=== PATIENT | female | born 1985 | race Caucasian/White ===

== ENCOUNTER → 2016-11-08 00:07 | Observation (INO) ==
--- NOTE | 2016-11-08 00:05 | OB/GYN Progress Note ---
Date of Encounter: 11/08/16 Time of Encounter: 00:01 - Assessment and Plan (1) 38 weeks gestation of Current Visit: Yes Status: Acute (2) False labor Current Visit: Yes Status: Acute Pt monitored for almost 2 hours with no cervical change. Contractions > every 10 minutes. Pt states contraction strength has decreased since arrival. Discussed case with Dr. Yarbrough on admission. He stated if no change discharge to home. Discussed when to return to triage and when to call provider with patient and , both state understanding. Subjective - Subjective Interval history: 31-year-old patient Dr. Hoff complains of contractions since earlier this afternoon contractions are anywhere from 8-20 minutes apart. Patient is a history of 2 would be repeat . Reports good movement denies vaginal bleeding or leaking of fluid. Antepartum ROS: movement normal, contractions, no loss of fluid, no vaginal bleeding Objective - Vital Signs Vital Signs: Intake and Output 11/07/16 11/07/16 11/08/16 15:59 23:59 07:59 Other: Weight 102.2 kg - Exam FHR: auscultation normal FHR comments: Baseline 135 Auscultation: bilateral: normal Abdomen: Present: normal appearance, soft, gravid Uterus: Present: normal Cervical dilation: 2/80/-2
== END | disposition home or self-care (01) ==
LOC: 1NENULAB
PROVIDERS: ADMIT Advanced Practice Midwife; ATTEND Obstetrics & Gynecology

== ENCOUNTER 2016-11-16 05:49 | Inpatient (IN) ==
[2016-11-16] MEDS ORDERED: CeFAZolin Pre 2,000 MG/100 ML 2,000 MG/100 ML BAG IVPB ONE (05:58)
[2016-11-16] MEDS ORDERED: Metoclopramide 10 MG/2 ML VIAL IVP PRN ×3 (05:58→12:13)
[2016-11-16] MEDS ORDERED: Famotidine 20 MG/2 ML VIAL IVP PRN ×2 (05:58→06:25)
[2016-11-16] MEDS ORDERED: Ringers Solution, Lactated 1,000 ML IVC SCH ×2 (06:00→12:13)
--- NOTE | 2016-11-16 06:53 | Anesthesia Evaluation PreOp ---
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: Denies Any Significant HX, Other (depression) Other Medical History: Denies Any Significant HX Anesthesia History: No Prior Anesthetic Complications, Past Anesthesia (lap lane) : Yes (, 39 weeks) Alcohol Use: none Drug use: none Medications and Allergies Bupropion HCl [Wellbutrin Xl] 300 mg PO DAILY 11/07/16 [History] FLUoxetine HCl [PROzac] 20 mg PO DAILY 11/07/16 [History] Vit #108/Iron/FA [ One Tablet] 1 each PO DAILY 11/07/16 [ History] Trazodone HCl 100 mg PO DAILY 11/07/16 [History] Allergies No Known Allergies Allergy (Verified 11/16/16 06:05) - Meds/Allergy Pre-op Review Medications Reviewed: Yes Allergies Reviewed: Yes Beta Blockers on Current Med List: No Anesthesia Exam O2 Sat Height 1.57 m Weight 101 kg Vital Signs Temp Pulse Resp BP 97.8 F 77 16 100/61 11/16/16 06:19 11/16/16 06:19 11/16/16 06:19 11/16/16 06:19 Height: 62 Weight: 101 NPO (# of Hours): greater than 8 hours - HEENT Pupil (Motor): Pupils equal Mallampati: I Teeth: Edentulous Oral Opening: Greater than 3 - BORING INSPECTOR LOC: Oriented BORING INSPECTOR Motor: Normal RUE, Normal LUE, Normal RLE, Normal LLE, Normal Face BORING INSPECTOR Sensory: Normal: RUE, LUE, RLE, LLE, Face - Cardiac Rhythm: Regular Murmur: None JVD: No Carotid Bruit: No - Pulmonary Breath Sounds: bilateral Clear Respiratory Effort: Symmetrical Anesthesia Assess/Plan ASA Score: 2 Modified Derby Scale for Level of Consciousness: Cooperative, oriented, and tranquil Anesthetic Plan: Regional Monitoring Plan: Standard Monitors Recovery Plan: PACU
[2016-11-16 07:13] LABS: Basophils % 0.4 %; Eosinophils % 0.3 %; Hematocrit 36.7 % (35.3-44.9); Hemoglobin 12.6 g/dL (11.5-15.4); Immature Granulocytes % 0.7 % (0-4); Lymphocytes % 27.2 %; Mean Corpuscular HGB Conc 34.3 g/dL (31.6-35.5); Mean Corpuscular Hemoglobin 31.4 pg (28.0-33.3); Mean Corpuscular Volume 91.5 fL (83.0-100.0); Mean Platelet Volume 9.7 fL (9.4-12.4); Monocytes # 0.3 K/mcL (0.0-1.3); Monocytes % 4.5 %; Platelet Count 189 K/mcL (140-400); Red Blood Count 4.01 M/mcL (3.82-4.97); Red Cell Distribution Width 13.4 % (11.5-14.5); Segmented Neutrophils % 66.9 %
--- NOTE | 2016-11-16 07:13 | OB/GYN History & Physical ---
Date of Encounter: 11/16/16 Time of Encounter: 07:10 Assessment and Plan (1) and not yet delivered in third trimester Current visit: Yes Status: Acute (2) 39 weeks gestation of Current visit: Yes Status: Acute (3) Previous section complicating Current visit: Yes Status: Acute We will perform a repeat low transverse section History of Present Illness HPI: Ms. Whitaker is a 31 year old female 6 para 5 at 39 and one sevenths weeks who presented for repeat section. Patient has a history of 2 previous section and this is her third. She did understand that we did not offer VBACs and it would be not safe for her to attempt that. Patient' s course has been relatively unremarkable patient did have an ultrasound approximately 2 weeks ago baby weighed 2964 g ADRIAN was 25 cm. She is A positive, GBS negative, rubella positive Past Med Surg Social Fam HX - Past Medical History Medical history: no medical history Psychiatric history: depression - Past Surgical History Surgical History: (Times 2), cholecystectomy - Social History Smoking Status: Never smoker Smokeless Tobacco Status: No Alcohol use: none Drug use: none Occupational status: unemployed Current living situation: Home - Independent Recent Out of Country Travel Within the Last 8 Weeks: No Exposure or Possible Exposure to Illness During Travel: No - Family History Mother Family Member Ethnicity: Non- Living Status: Still Living Hx Family Cardiac Disorders: No Hx Family Respiratory Disorders: No Hx Family Cancer: No Hx Family GI Disorders: No Hx Family Endocrine Disorder: Yes (Diabetic) Hx Family Neuromuscular Disorders: No Hx Family Neurologic Disorders: No Hx Family HEENT Disorders: No Hx Family Autoimmune Disorders: No - Additional Family History Additional family history: Family history noncontributory at this time Obstetrical History - Pregnancies : 6 Para: 5 Livin Medications and Allergies Bupropion HCl [Wellbutrin Xl] 300 mg PO DAILY 11/07/16 [History] FLUoxetine HCl [PROzac] 20 mg PO DAILY 11/07/16 [History] Vit #108/Iron/FA [ One Tablet] 1 each PO DAILY 11/07/16 [ History] Trazodone HCl 100 mg PO DAILY 11/07/16 [History] Allergies No Known Allergies Allergy (Verified 11/16/16 06:05) Review of System OB All systems PM: reviewed and no additional remarkable complaints except as stated Exam - Vital Signs Vital signs: Initial Vital Signs Temp Pulse Resp BP 97.8 F 77 16 100/61 11/16/16 06:19 11/16/16 06:19 11/16/16 06:19 11/16/16 06:19 - Constitutional Constitutional: well developed, well nourished, no acute distress, average body habitus - HEENT HEENT: PERRL - Neck Neck exam: full ROM - Lungs Respiratory exam: CTAB - Cardiovascular Cardiovascular exam: RRR - Abdomen Abdomen: Present: bowel sounds normal - Cervix Dilation: 0 Effacement: 50 Station: -3 Results All other labs normal.
--- NOTE | 2016-11-16 08:16 | Anesthesia Procedures ---
Date of Encounter: 11/16/16 Time of Encounter: 07:54 Procedures: Anesthesia - Epidural/Spinal Patient ID/Chart reviewed: Yes Patient examined: Yes OB Eval: : 6 OB Eval: Hx Para: 5 OB Eval: Contractions: Non-stressed pattern Consent Obtained: Yes Supplemental Oxygen: None/Room Air Site Prep: Aseptic Technique, Sterile prep and drape, Povidone-Iodine 1% Patient position: upright Local Anesthetic: Lidocaine 1% Amount of Local Anesthetic used: 3 Blood: No CSF: Yes Paresthesia: No Spinal Needle Gauge: 25 Spinal Dose: see anesthesia record Vitals + FHT's: see anesthesia record
[2016-11-16] MEDS ORDERED: *HR* Morphine Sulfate/PF 5 MG/10 ML AMPUL ONE (08:17)
[2016-11-16] MEDS ORDERED: *HR* FentaNYL (PF) 100 MCG/2 ML VIAL ONE (08:17)
[2016-11-16] MEDS ORDERED: *HR* HYDROmorphone (PF) 1 MG/ML SYRINGE IVP PRN (08:18)
[2016-11-16] MEDS ORDERED: Ondansetron 4 MG/2 ML VIAL IVP PRN ×2 (08:18→12:13)
[2016-11-16] MEDS ORDERED: Ringers Solution, Lactated 1,000 ML ONE (08:49)
[2016-11-16] MEDS ORDERED: *HR* Oxytocin 10 UNIT/ML VIAL IM ONE ×2 (08:49)
--- NOTE | 2016-11-16 09:27 | OB/GYN Procedure Note ---
Section - Date of procedure: 11/16/16 Preop diagnosis: other (Intrauterine at 39 and one sevenths weeks, previous section 2) Post-op diagnosis: same Procedure: repeat low transverse Surgeon: Juan Alberto Hoff Estimated blood loss (cc): 300 Anesthesiologist: Daniela Bangura [employer] Set Up Worker: Doni Alvarez Anesthesia Type: Spinal section complications: none Disposition: L&D Recovery Room - (s) A Delivery Date: 11/16/16 Delivery Time: 08:30 Presentation: vertex Position: unknown Route of delivery: other ( section) Gender: Male Viability: Viable Pounds: 6 Ounces: 6 Gram Weight: 2.905 kg at 1 minute: 8 at 5 minutes: 9 Shoulder Dystocia: not encountered Placenta: spontaneous Cord: 3 umbilical vessels - Narrative Narrative: Patient is a 31-year-old 6 para 5 at 39-1/7 weeks presented for repeat section. Patient had 2 previous sections recommended a repeat. Patient's course has been relatively unremarkable. Procedure: Patient was taken to the operating room where spinal anesthesia was found be adequate. She was placed in the dorsal supine position prepped and draped in usual fashion. Timeout was then obtained. A Pfannenstiel incision was made with a scalpel and carried down to the underlying tissue to the fascia was identified. The fascia was nicked in the midline extended laterally with the Pastrana scissors. The superior and inferior edges of the fascia were then grasped tented up dissected off the rectus muscles. Rectus muscles were in midline, parietal peritoneum was identified tented up and entered sharply. This is extended superiorly and inferiorly with Metzenbaum scissors. She was noted to have the bladder reflection pulled high up on the uterus and right and the midline she had this conglomeration of blood vessels with 3 large vessels feeding into it. There was a small defect right over the massive vessels suggestive of a either uterine perforation with placental tissue protruding through with a secondary blood supply to that area. Because it was right in the lower uterine segment where needed to incise it was decided this time we would have to make her incision higher up. Because these vessels were so large I decided to go ahead and tied them off with millimeter incision on the uterus. Using a 2-0 Vicryl 5 [id number] stitches we proceeded to suture ligate these vessels each 2. Once we had this obtained and proceeded to make an incision just superior to this area incision was carried down and carried out laterally with bandage scissors. Membranes were ruptured for light meconium was identified. The infant's head was then brought up through the incision was fully delivered and the cord was clamped and cut and infant was handed off to waiting pediatric team. Placenta was then spontaneously delivered she did have an anterior placenta which we had to cut through. Once the placenta was out we did examine the lower uterine segment and it did not appear to be any defect in the area of the vascular bundle. The uterus was cleaned of all clots and debris and the lower uterine segment was closed using 0 Vicryl by a 2 layer closure locking. The uterus was returned to the abdomen she started to develop a hematoma on the left broad ligament the uterus was re- exteriorized and a [id number] stitch was then placed to get hemostasis under control and stop that hematoma from forming. We did observe this for period of time and it was not expanding. Uterus was returned to the abdomen the gutters were cleaned of all clots and debris then copiously irrigated. No other pathology was seen and proceeded to close. We did bring the rectus muscles together by a [id number] suture she had a previous permanent stitch in the fascia which we had to remove then the fascia was closed using a # 1 stratafix in a running stitch. The skin was then closed using 4-0 Vicryl in a subcuticular manner. All needles lap and sponge counts were correct 3 and she did receive preoperative antibiotics. She will be observed 2 hours before being taken floor.
--- NOTE | 2016-11-16 09:44 | Anesthesia Evaluation Post Op ---
Date of Encounter: 11/16/16 Time of Encounter: 09:43 - Vital Signs Vital Signs: 98/72, hr 86, 95%, RR14 - Lungs Lungs: Clear Ascult./Percussion - Airway Airway: Non-obstructed - Cardiovascular Regular Rate - Mental Status Mental Status: Alert & Oriented, Answers Appropriately - Pain Pain Scale: 0 Pain Scale used: Numeric (1 - 10) - Nausea Vomiting Nausea Vomiting: Not Present - Hydration Hydration: NPO, Douglass catheter - Discharge PostOp Status: Transfer Patient to floor
[2016-11-16] MEDS ORDERED: Oxytocin 20 units/ LR 1000 mL 20 UNIT/1,000 ML BAG IVC ONE (10:56)
[2016-11-16] MEDS ORDERED: *HR* OxyCODONE/APAP 5/325 TABLET PO PRN (12:13)
[2016-11-16] MEDS ORDERED: Oxytocin 20 units/ LR 1000 mL 20 UNIT/1,000 ML BAG IVC SCH (12:13)
[2016-11-16] MEDS ORDERED: *HR* Morphine 2 MG/ML SYRINGE IVP PRN (12:13)
[2016-11-16] MEDS ORDERED: Sennosides 8.6 MG TABLET PO PRN (12:13)
[2016-11-16] MEDS ORDERED: *HR* OxyCODONE/APAP 10/325 TABLET PO PRN (12:13)
[2016-11-16] MEDS ORDERED: Naloxone 0.4 MG/ML INJ IVP PRN (12:13)
[2016-11-16] MEDS ORDERED: Simethicone 80 MG TAB.CHEW PO PRN (12:13)
[2016-11-16] MEDS: Ibuprofen 600 MG TABLET PO PRN (21:22)
[2016-11-17 03:48] LABS: Basophils % 0.1 %; Eosinophils # 0.1 K/mcL (0.0-0.6); Eosinophils % 0.9 %; Hematocrit 29.5 % (35.3-44.9); Immature Granulocytes % 0.4 % (0-4); Lymphocytes # 1.5 K/mcL (0.6-4.6); Lymphocytes % 19.4 %; Mean Corpuscular HGB Conc 33.9 g/dL (31.6-35.5); Mean Corpuscular Hemoglobin 31.6 pg (28.0-33.3); Mean Corpuscular Volume 93.4 fL (83.0-100.0); Mean Platelet Volume 9.7 fL (9.4-12.4); Monocytes # 0.4 K/mcL (0.0-1.3); Monocytes % 4.7 %; Neutrophils # 5.6 K/mcL (1.6-8.9); Platelet Count 131 K/mcL (140-400); Red Blood Count 3.16 M/mcL (3.82-4.97); Red Cell Distribution Width 13.2 % (11.5-14.5); Segmented Neutrophils % 74.5 %
[2016-11-17] MEDS: Ibuprofen 600 MG TABLET PO PRN ×2 (08:31→14:17)
[2016-11-17] MEDS ORDERED: traZODone 50 MG TABLET PO SCH (09:00)
[2016-11-17] MEDS ORDERED: Prenatal Vit/FA 1 EACH TABLET PO SCH ×2 (09:00)
[2016-11-17] MEDS ORDERED: FLUoxetine 20 MG CAPSULE PO SCH (09:00)
[2016-11-17] MEDS ORDERED: BuPROPion XL (24 HR) 150 MG TABLET PO SCH (09:00)
--- NOTE | 2016-11-17 09:22 | OB/GYN Progress Note ---
Date of Encounter: 11/17/16 Time of Encounter: 09:20 - Assessment and Plan (1) Status post repeat low transverse section Current Visit: Yes Status: Acute Continue routine /postop care. possible discharge home later today Subjective - Subjective Principal diagnosis: /postop day 1 repeat c/s Interval history: Patient in bed. Reports feeling tired. Patient has not been up to BR since catheter was discontinued. Patient would like to possible go home today. Will encourage ambulation and reassess later today. Patient reports: appetite normal, pain well controlled : doing well, nursing well Objective - Vital Signs Latest vital signs: Vital Signs Temp Pulse Pulse Resp BP Pulse Ox 11/17/16 04:10 98.2 F 80 16 96/60 96 11/17/16 00:00 98.2 F 79 16 89/51 96 11/16/16 20:01 98.2 F 84 16 94/63 95 11/16/16 16:55 74 18 11/16/16 16:30 97.7 F 82 16 103/70 96 11/16/16 14:56 98.5 F 74 18 96/63 97 11/16/16 14:45 74 18 11/16/16 13:49 97.8 F 69 70 16 97/56 97 11/16/16 13:48 97.8 F 69 16 97/56 97 11/16/16 12:47 97.8 F 62 16 93/54 98 11/16/16 12:45 97.7 F 72 16 97/61 97 11/16/16 12:15 97.8 F 62 16 93/54 98 11/16/16 11:45 97.8 F 65 16 96/57 98 Intake and Output 11/16/16 11/17/16 11/17/16 23:59 07:59 15:59 Output Total 300 / 300 Balance -300 / -300 Output: Catheter 300 / 300 Other: Weight 99.7 kg Patient Weight 11/17/16 23:59 Weight 99.7 kg - Exam Lungs: bilateral: normal Chest: Normal S1, Normal S2 Extremities: Present: normal Abdomen: Present: normal appearance, soft Incision: Present: normal, dry, intact, dressed Uterus: Present: normal, firm Fundal Height: 2 (U/2) - Labs Labs: Laboratory Results - last 24 hr 11/17/16 03:19 WBC 7.5 RBC 3.16 L Hgb 10.0 L D Hct 29.5 L MCV 93.4 MCH 31.6 MCHC 33.9 RDW 13.2 Plt Count 131 L MPV 9.7 Immature Gran % 0.4 Seg Neutrophils % 74.5 Lymphocytes % 19.4 Monocytes % 4.7 Eosinophils % 0.9 Basophils % 0.1 Neutrophils # 5.6 Lymphocytes # 1.5 Monocytes # 0.4 Eosinophils # 0.1 Basophils # 0.0
[2016-11-17] MEDS ORDERED: Ringers Solution, Lactated 1,000 ML ONE (09:45)
[2016-11-17 17:07] VITALS: BP 119/80
--- NOTE | 2016-11-17 17:36 | Discharge Summary ---
Date of Encounter: 11/17/16 Time of Encounter: 17:33 - Discharge Diagnosis (1) Status post repeat low transverse section Priority: Primary Status: Acute Comments: Continue postop/ care discharge home today per patient request (2) Breast feeding status of mother Priority: Secondary Status: Acute Comments: support prn - Discharge Medications Prescriptions: Ibuprofen [Motrin] 600 mg PO Q6HR PRN #60 tab PRN Reason: Pain Docusate Sodium [Colace] 100 mg PO BID #60 capsule Ferrous Sulfate 325 mg PO DAILY #30 tablet Home Medications: Bupropion HCl [Wellbutrin Xl] 300 mg PO DAILY 11/07/16 [History] FLUoxetine HCl [PROzac] 20 mg PO DAILY 11/07/16 [History] Vit #108/Iron/FA [ One Tablet] 1 each PO DAILY 11/07/16 [ History] Trazodone HCl 100 mg PO DAILY 11/07/16 [History] Docusate Sodium [Colace] 100 mg PO BID #60 capsule 11/17/16 [Rx] Ferrous Sulfate 325 mg PO DAILY #30 tablet 11/17/16 [Rx] Ibuprofen [Motrin] 600 mg PO Q6HR PRN #60 tab 11/17/16 [Rx] Allergies/Adverse Reactions: Allergies No Known Allergies Allergy (Verified 11/16/16 06:05) Data Procedures and tests throughout hospitalization: Laboratory Tests 11/16/16 11/17/16 06:48 03:19 WBC 7.5 7.5 RBC 4.01 3.16 L Hgb 12.6 10.0 L D Hct 36.7 29.5 L MCV 91.5 93.4 MCH 31.4 31.6 MCHC 34.3 33.9 RDW 13.4 13.2 Plt Count 189 131 L MPV 9.7 9.7 Immature Gran % 0.7 0.4 Seg Neutrophils % 66.9 74.5 Lymphocytes % 27.2 19.4 Monocytes % 4.5 4.7 Eosinophils % 0.3 0.9 Basophils % 0.4 0.1 Neutrophils # 5.0 5.6 Lymphocytes # 2.0 1.5 Monocytes # 0.3 0.4 Eosinophils # 0.0 0.1 Basophils # 0.0 0.0 Labs on day of discharge: Labs from last 24 hours 11/17/16 03:19 WBC 7.5 RBC 3.16 L Hgb 10.0 L D Hct 29.5 L MCV 93.4 MCH 31.6 MCHC 33.9 RDW 13.2 Plt Count 131 L MPV 9.7 Immature Gran % 0.4 Seg Neutrophils % 74.5 Lymphocytes % 19.4 Monocytes % 4.7 Eosinophils % 0.9 Basophils % 0.1 Neutrophils # 5.6 Lymphocytes # 1.5 Monocytes # 0.4 Eosinophils # 0.1 Basophils # 0.0 Date of admission: 11/16/16 05:49 Primary care physician: PCP DAVY Discharging clinician: Gricelda Mark Anticipated date of discharge: 11/17/16 - Patient Status Disposition: Home, Self-Care Condition: Good Functional capacity at discharge: independent ambulation - Discharge Instructions Follow Up With: DAVY,PCP [Primary Care Provider] - Juan Alberto Hoff DO [Partnered Physician] - - Diet and Activity Activity: increase activity as tolerated Hospital Course Reason for admission: section Delivery: section Episiotomy: none Laceration: none Other procedures: none complications: none, wound infection baby: male (breast feeding) Time Attestation: Total time spent providing and/or coordinating discharge services: Time Spent: Less than 30 minutes - VTE Documentation of Mechanical Device: Intermittent pneumatic compression device Exam - Constitutional Vitals: Temp Pulse Resp BP Pulse Ox 98.9 F 95 16 119/80 96 11/17/16 16:15 11/17/16 16:15 11/17/16 16:15 11/17/16 16:15 11/17/16 16:15 General appearance IM: A&O X 3, pleasant, answers questions appropriately - Respiratory Respiratory exam: Present: CTAB - Cardiovascular Cardiovascular exam IM: Present: RRR, +S1, +S2 - GI/Abdominal GI/Abdominal exam IM: normal bowel sounds Incision: normal, dry, intact, dressed (medipore dressing to be removed prior to discharge) - Uterine Tone: Firm Uterus Position: 2 Fingers Below Umbilicus, Midline - Neurological Exam Neurological exam: alert, oriented X3, reflexes normal
== END 2016-11-17 18:13 | disposition home or self-care (01) | DRG 766 ==
LOC: 1NENULAB 05:49 → 1NENUOBS 11:46
PROVIDERS: ADMIT Obstetrics & Gynecology; ATTEND Obstetrics & Gynecology

== ENCOUNTER 2019-02-20 09:08 | Inpatient (IN) ==
[2019-02-20] MEDS ORDERED: Ringers Solution, Lactated 1,000 ML IVC ONE (09:54)
[2019-02-20 10:06] LABS: Bilirubin,Urine Negative (Negative); Blood,Urine Negative (Negative); Color,Urine Yellow (Yellow); Glucose,Urine (UA) Normal (Normal); Ketones,Urine Negative (Negative); Leukocyte Esterase,Urine Small (Negative); Nitrite,Urine Negative (Negative); Protein,Urine Negative (Neg-Trace); Specific Gravity,Urine 1.015 (1.010-1.025); Urobilinogen,Urine Normal (Normal)
[2019-02-20 10:30] LABS: Clarity,Urine Clear (Clear)
[2019-02-20 10:45] LABS: Bacteria,Urine Few per hpf (None-Few); RBC,Urine 0-3 per hpf (0-3); WBC,Urine 0-3 per hpf (0-3)
[2019-02-20 10:46] LABS: Squamous Epithelial Cell,Urine Few per lpf (None-Few)
[2019-02-20 11:10] LABS: Amphetamine Screen,Urine Negative ng/mL (Cutoff=1000); Barbiturate Screen,Urine Negative ng/mL (Cutoff=200); Benzodiazepines Screen,Urine Negative ng/mL (Cutoff=200); Cannabinoid Screen,Urine Negative ng/mL (Cutoff = 50); Cocaine Screen,Urine Negative ng/mL (Cutoff= 300); Opiate Screen,Urine Negative ng/mL (Cutoff=300); Phencyclidine Screen,Urine Negative ng/mL (Cutoff=25)
[2019-02-20] MEDS ORDERED: Ringers Solution, Lactated 1,000 ML ONE ×2 (12:10→13:46)
[2019-02-20] MEDS ORDERED: Metoclopramide 10 MG/2 ML VIAL IVP ONE (13:30)
[2019-02-20] MEDS ORDERED: Oxytocin 20 units/ LR 1000 mL 20 UNIT/1,000 ML BAG IVC SCH ×2 (13:30→20:52)
[2019-02-20] MEDS ORDERED: Oxytocin 20 units/ LR 1000 mL 20 UNIT/1,000 ML BAG IVC ONE (13:30)
[2019-02-20] MEDS ORDERED: CeFAZolin Premix DUPLEX 2,000 MG/50 ML BAG IVPB ONE (13:30)
[2019-02-20] MEDS ORDERED: Ringers Solution, Lactated 1,000 ML IVC SCH (13:30)
[2019-02-20] MEDS ORDERED: Famotidine 20 MG/2 ML VIAL IVP ONE (13:30)
--- NOTE | 2019-02-20 13:30 | OB/GYN History & Physical ---
Date of Encounter: 02/20/19 Time of Encounter: 13:20 Assessment and Plan (1) 36 weeks gestation of Current visit: Yes Status: Acute Admit for repeat section Patient care assumed by Dr Rm. (2) Previous section complicating Current visit: Yes Status: Acute History of Present Illness Chief complaint: Contractions HPI: Ms. Whitaker is a 33 year old at 36 weeks and 6 days that presents to triage with c/o contractions that began this morning. She presented with a cervix of 1cm dilation and after a liter bolus of IV fluids and rest she continued to contract and progressed to 2cm. She states positive movement. She denies headaches, visual disturbances, epigastric pain, leaking of fluid, and vaginal bleeding. She is currently taking wellbutrin and prozac for generalized depression. She has had 3 previous LTCS with the most recent being in 2017. She has had an uncomplicated with care starting at 11 weeks gestation. Her most recent ultrasound was on 02/13/19 at 35w6d gestation with an EFW of 3009g 78 percentile and an ADRIAN of 18 cm. Labs: GBS negative Blood type A+ Treponema Pallidum Ab Neg HepBSAg NR HIV NR Rubella Immune Varicella Immune Past Med Surg Social Fam HX - Past Medical History Medical history: no medical history Psychiatric history: depression - Past Surgical History Surgical History: , cholecystectomy Additional surgical history: x 3 - Social History Smoking Status: Never smoker Smokeless Tobacco Status: No Alcohol use: none Drug use: none - Family History Mother Family Member Ethnicity: Non- Living Status: Still Living Hx Family Cardiac Disorders: No Hx Family Respiratory Disorders: No Hx Family Cancer: No Hx Family GI Disorders: No Hx Family Endocrine Disorder: Yes (Diabetic) Hx Family Neuromuscular Disorders: No Hx Family Neurologic Disorders: No Hx Family HEENT Disorders: No Hx Family Autoimmune Disorders: No Obstetrical History - Pregnancies : 7 Para: 6 Term: 6 : 0 Ab's: 0 Livin Medications and Allergies Bupropion HCl [Wellbutrin Xl] 300 mg PO DAILY 11/07/16 [History] Vit 108/Iron/Folic AC [ One Tablet] 1 each PO DAILY 11/07/16 [History] FLUoxetine HCl [Prozac] 1 tab PO QAM 09/04/19 [History] Allergy/AdvReac Type Severity Reaction Status Date / Time No Known Allergies Allergy Verified 11/16/16 06:05 Review of System OB All systems PM: reviewed and no additional remarkable complaints except as stated Exam - Constitutional Constitutional: well developed, well nourished, no acute distress, average body habitus - HEENT HEENT: Normocephaly, Mucus Membranes Moist - Neck Neck exam: full ROM - Lungs Respiratory exam: CTAB - Cardiovascular Cardiovascular exam: RRR, +S1, +S2 - Breasts Breast: bilateral: normal - Abdomen Abdomen: Present: bowel sounds normal, gravid, non tender - Extremities Extremities exam: normal capillary refill, normal inspection, pedal edema (1+), radial pulses palpable and symmetrical Deep Tendon Reflex Grade: 2+ Normal - Vagina Vagina: Present: normal moisture - Cervix Dilation: 3 (Per RN exam ) - Uterus Uterus exam: Present: normal size, normal contour - Anus/Rectum Anus/Rectum: Present: normal perianal skin Results Abnormal lab results Ur Leukocyte Esterase Small (Negative) H 02/20/19 09:30 Ur Culture Indicated? YES (NO) A 02/20/19 09:30 All other labs normal. - VTE Reasons for not Prescribing Prophylaxis: Treatment not Indicated - Low risk for VTE
[2019-02-20] MEDS ORDERED: Azithromycin 500 MG in 0.9 % Sodium Chloride 250 ML IVPB ONE (13:34)
--- NOTE | 2019-02-20 13:41 | Anesthesia Evaluation PreOp ---
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 Other Medical History: Denies Any Significant HX Anesthesia History: No Prior Anesthetic Complications (NA x 6--no issues; denies personal and family h/o GA complications), Past Anesthesia (CSXN x 3; Lx cholecystectomy) : Yes Alcohol Use: none Drug use: none Medications and Allergies Bupropion HCl [Wellbutrin Xl] 300 mg PO DAILY 11/07/16 [History] Vit 108/Iron/Folic AC [ One Tablet] 1 each PO DAILY 11/07/16 [H istory] FLUoxetine HCl [Prozac] 1 tab PO QAM 02/20/19 [History] Allergy/AdvReac Type Severity Reaction Status Date / Time No Known Allergies Allergy Verified 11/16/16 06:05 - Meds/Allergy Pre-op Review Medications Reviewed: Yes Allergies Reviewed: Yes Beta Blockers on Current Med List: No Anesthesia Exam 118/73, HR 82 O2 Sat Height 1.59 m Weight 108.9 kg NPO (# of Hours): solids > 6hrs (bread & one egg) Pain Scale: 0 Pain Scale Used: Numeric (1 - 10) - HEENT Pupil (Motor): Pupils equal Mallampati: II Teeth: Prosthesis Denture Type: Upper: Complete Oral Opening: Greater than 3 - MOTOR COACH BUS DRIVER LOC: Oriented MOTOR COACH BUS DRIVER Motor: Normal RUE, Normal LUE, Normal RLE, Normal LLE, Normal Face MOTOR COACH BUS DRIVER Sensory: Normal: RUE, LUE, RLE, LLE, Face - Cardiac Rhythm: Regular Murmur: None - Pulmonary Breath Sounds: bilateral Clear Respiratory Effort: Symmetrical Anesthesia Assess/Plan ASA Score: 2 Level of consciousness: Cooperative, Oriented, Tranquil Anesthetic Plan: General (plan B), Spinal (plan A) Autologous Blood: No Monitoring Plan: Standard Monitors Recovery Plan: PACU
[2019-02-20] MEDS ORDERED: *HR* FentaNYL (PF) 100 MCG/2 ML VIAL ONE (13:44)
[2019-02-20] MEDS ORDERED: *HR* Morphine Sulfate/PF 10 MG/10 ML AMPUL ONE (13:44)
[2019-02-20] MEDS ORDERED: *HR* Oxytocin 10 UNIT/ML VIAL IM ONE (13:46)
[2019-02-20] MEDS ORDERED: *HR* Phenylephrine 10 MG/ML VIAL ONE (13:46)
--- NOTE | 2019-02-20 13:49 | Event Note ---
Date of Encounter: 02/20/19 Time of Encounter: 13:48 I was informed by staff that the patient was making cervical change and was not 2-3 cm when she had been closed on arrival. She is now 36 weeks and 6 days with a history of 3 previous sections. I reviewed with the patient the plan of care which would include a repeat . She does not desire tubal ligation. I have reviewed the previous op note. Informed consent has been obtained.
[2019-02-20 13:54] LABS: Basophils % 0.3 %; Eosinophils # 0.1 K/mcL (0.0-0.6); Eosinophils % 0.7 %; Hematocrit 36.9 % (35.3-44.9); Hemoglobin 12.1 g/dL (11.5-15.4); Immature Granulocytes % 0.4 % (0-4); Lymphocytes # 1.6 K/mcL (0.6-4.6); Lymphocytes % 23.7 %; Mean Corpuscular HGB Conc 32.8 g/dL (31.6-35.5); Mean Corpuscular Hemoglobin 29.2 pg (28.0-33.3); Mean Corpuscular Volume 88.9 fL (83.0-100.0); Mean Platelet Volume 9.9 fL (9.4-12.4); Monocytes # 0.3 K/mcL (0.0-1.3); Monocytes % 4.5 %; Neutrophils # 4.7 K/mcL (1.6-8.9); Platelet Count 239 K/mcL (140-400); Red Blood Count 4.15 M/mcL (3.82-4.97); Red Cell Distribution Width 13.5 % (11.5-14.5); Segmented Neutrophils % 70.4 %; White Blood Count 6.7 K/mcL (4.3-11.1)
--- NOTE | 2019-02-20 15:41 | Anesthesia Procedures ---
Date of Encounter: 02/20/19 Time of Encounter: 15:39 Procedures: Anesthesia - Epidural/Spinal Patient ID/Chart reviewed: Yes Patient examined: Yes OB Eval: Gestational age: 36 weeks 6 days OB Eval: : 7 OB Eval: Hx Para: 6 OB Eval: Dilated at (cm): 3 OB Eval: Contractions: Non-stressed pattern Consent Obtained: Yes Supplemental Oxygen: None/Room Air Site Prep: Aseptic Technique, Sterile prep and drape, 0.5% Chlorhexidine/Alcohol Patient position: upright Local Anesthetic: Lidocaine 1% Amount of Local Anesthetic used: 3 Blood: No CSF: Yes Paresthesia: No Spinal Needle Gauge: 25 (3.5" pencan needle) Spinal Dose: see anesthesia record Procedure: successful on 1st attempt; patient tolerated procedure well; VSS Vitals + FHT's: see anesthesia record
--- NOTE | 2019-02-20 16:59 | Anesthesia Evaluation Post Op ---
Date of Encounter: 02/20/19 Time of Encounter: 16:58 - Vital Signs Vital Signs: 102/54, HR 78, RR14, SpO2 97% - Lungs Lungs: Clear Ascult./Percussion - Airway Airway: Non-obstructed - Cardiovascular Regular Rate - Mental Status Mental Status: Alert & Oriented, Answers Appropriately - Pain Pain Scale: 0 Pain Scale used: Numeric (1 - 10) - Nausea Vomiting Nausea Vomiting: Not Present - Hydration Hydration: NPO, Douglass catheter - Discharge PostOp Status: Transfer Patient to floor
--- NOTE | 2019-02-20 17:31 | OB/GYN Procedure Note ---
Section - Date of procedure: 02/20/19 Preop diagnosis: desires repeat , other (3 previous sections, active labor at 36 weeks) Post-op diagnosis: same Procedure: section, repeat low transverse Surgeon: Madiha Gonzalez Blood Loss: 400 Was there an lead dental assistant present: No Lobster Catcher: Doni Alvarez Anesthesia Type: Spinal section complications: none Disposition: L&D Recovery Room Specimens: Placenta, Cord segment - Infant (s) Infant A Infant Delivery Date: 02/20/19 Delivery Time: 15:51 Presentation: vertex Route of delivery: other ( section) Gender: Male Viability: Viable Pounds: 6 Ounces: 15 Gram Weight: 3.14 kg at 1 minute: 8 at 5 minutes: 9 Placenta: spontaneous, uterine exploration Cord: nuchal cord, 3 umbilical vessels, nuchal reduced - Narrative Narrative: The patient was taken to the operating room and given spinal anesthesia adequate for abdominal and pelvic surgery. She was prepped and draped in the usual sterile fashion. Timeout was completed. Anesthesia was tested to be adequate. A Pfannenstiel skin incision was made through the existing scar. The subcutaneous layer was sharply dissected down to the fascia. The fascia was incised in the midline and extended bilaterally. 2 straight Perry clamps were placed on the inferior fascial edge and the fascia was bluntly and sharply dissected away from the rectus muscles. This was repeated superiorly. The rectus muscles were bluntly bissected. Peritoneum was bluntly entered and then extended superiorly and inferiorly. Anterior abdominal wall was checked to be free of adhesions. Good hemostasis noted. The Bladder blade was placed to protect the bladder. Vesicouterine peritoneum and adhesions were incised and reflected inferiorly and the bladder blade was replaced to protect the bladder. A low transverse incision was then made through the lower uterine segment down to the amnion. This was bluntly and sharply extended bilaterally. The amnion was bluntly entered. This was followed by the vertex delivery of a viable and vigorous _male__ infant weighing _6_#_15_oz with Apgars of _8/_9. was placed on the maternal abdomen. The cord was clamped and cut after a delay. Infant was handed to the nursery care team. The placenta was delivered spontaneous and intact then the uterine cavity was digitally palpated and wiped clean with a moist lap sponge. There were no placental remnants identified. Clamps were placed on the uterine angles, the cervix was dilated with ring forcep and discarded off the field. The uterine incision was closed using 0 Vicryl suture in a running, locking fashion. A second imbricating layer completed the uterine closure with 0 Vicryl suture. Good hemostasis achieved. The pelvis was then irrigated with sterile water. Gloves were changed. Hemostasis was confirmed. The ovaries and fallopian tubes were examined and noted to be grossly normal bilaterally. The peritoneal edges and rectus muscles were then examined and hemostasis achieved. The fascia was then closed using an 0 PDS loop in a running nonlocking fashion. Subcutaneous tissue was irrigated with sterile water, good hemostasis was achieved. This layer was closed with O- stratastfix. The skin was then closed using a 4-0 Monocryl in a running subcuticular fashion. Dressing applied. Good hemostasis was noted. Estimated blood loss was _400__cc. The Douglass was noted to be draining clear yellow urine at the end of the procedure. All sponge and instrument counts are correct at the end of the procedure. The patient was taken to the recovery room in stable condition.
[2019-02-20] MEDS ORDERED: Morphine Sulfate 2 MG/ML SYRINGE IVP PRN ×2 (17:32→20:52)
[2019-02-20] MEDS ORDERED: Naloxone 0.4 MG/ML INJ IVP PRN ×3 (17:32→20:52)
[2019-02-20] MEDS ORDERED: *HR* HYDROmorphone (PF) 1 MG/ML SYRINGE IVP PRN ×2 (17:32→20:52)
[2019-02-20] MEDS ORDERED: *HR* OxyCODONE/APAP 5/325 TABLET PO PRN (17:32)
[2019-02-20] MEDS ORDERED: Ibuprofen 400 MG TABLET PO PRN ×2 (17:32→20:52)
[2019-02-20] MEDS ORDERED: Ondansetron 4 MG/2 ML VIAL IVP PRN ×3 (17:32→20:52)
[2019-02-20] MEDS ORDERED: Acetaminophen IV 1,000 MG/100 ML INFUS..BTL IVPB ONE (17:37)
[2019-02-20] MEDS ORDERED: Measles/Mumps/Rubella Vacc 0.5 ML VIAL SQ ONE (20:52)
[2019-02-20] MEDS ORDERED: Simethicone 80 MG TAB.CHEW PO PRN (20:52)
[2019-02-20] MEDS ORDERED: *HR* OxyCODONE Immed Rel 5 MG TABLET PO PRN (20:52)
[2019-02-20] MEDS ORDERED: Metoclopramide 10 MG/2 ML VIAL IVP PRN (20:52)
[2019-02-20] MEDS: Acetaminophen 325 MG TABLET PO SCH (22:04)
[2019-02-20] MEDS: Ibuprofen 600 MG TABLET PO SCH (22:04)
[2019-02-20] MEDS: cephALEXin 500 MG CAPSULE PO SCH (22:05)
[2019-02-20] MEDS: metroNIDAZOLE 500 MG TABLET PO SCH (22:07)
[2019-02-21] MEDS: Ibuprofen 600 MG TABLET PO SCH ×4 (02:25→20:44)
[2019-02-21] MEDS: Acetaminophen 325 MG TABLET PO SCH ×4 (02:25→20:01)
[2019-02-21 06:54] LABS: Basophils % 0.1 %; Eosinophils # 0.1 K/mcL (0.0-0.6); Hematocrit 32.7 % (35.3-44.9); Hemoglobin 10.8 g/dL (11.5-15.4); Immature Granulocytes % 0.4 % (0-4); Lymphocytes # 1.3 K/mcL (0.6-4.6); Lymphocytes % 18.3 %; Mean Corpuscular Hemoglobin 29.8 pg (28.0-33.3); Mean Corpuscular Volume 90.1 fL (83.0-100.0); Mean Platelet Volume 9.6 fL (9.4-12.4); Monocytes # 0.4 K/mcL (0.0-1.3); Neutrophils # 5.3 K/mcL (1.6-8.9); Platelet Count 194 K/mcL (140-400); Red Blood Count 3.63 M/mcL (3.82-4.97); Red Cell Distribution Width 13.3 % (11.5-14.5); Segmented Neutrophils % 75.2 %; White Blood Count 7.1 K/mcL (4.3-11.1)
[2019-02-21] MEDS: Prenatal Vit/FA 1 EACH TABLET PO SCH (08:49)
[2019-02-21] MEDS: metroNIDAZOLE 500 MG TABLET PO SCH ×3 (08:49→20:44)
[2019-02-21] MEDS: cephALEXin 500 MG CAPSULE PO SCH ×3 (08:49→20:44)
--- NOTE | 2019-02-21 11:28 | OB/GYN Progress Note ---
Date of Encounter: 02/21/19 Time of Encounter: 11:26 - Assessment and Plan (1) Status post repeat low transverse section Current Visit: Yes Status: Acute Patient has met all milestones's status post section. She is eating, drinking, urinating, passing gas, her pain is well managed, she is ambulating, and has minimal lochia. Her child is having difficulty latching to the breast, and is having bouts of hypoglycemia. 1. Continue to monitor the patient's pain 2. Continue to monitor the patient's lochia 3. Continue to monitor the patient's mood 4. Encourage her to use her incentive spirometer (2) Breast feeding status of mother Current Visit: No Status: Acute support as needed. Provide breast pump prescription if needed at discharge. Subjective - Subjective Patient reports: appetite normal, voiding normally, pain well controlled, ambulating normally, other (Patient reports a good mood. Patient reports that she is able to pass gas, but denies a bowel movement) : other (Baby is having difficulty with latching to the breast, and has had multiple episodes of hypoglycemia. Most recent glucose level of 21, which has required intravenous management) Objective - Vital Signs Latest vital signs: Vital Signs Temp Pulse Pulse Resp BP Pulse Ox 02/21/19 08:00 98.2 F 79 16 103/64 02/21/19 06:40 98.3 F 83 14 104/63 97 02/21/19 02:30 98.8 F 78 78 16 95/55 96 02/20/19 22:40 98.5 F 75 75 16 108/65 97 02/20/19 21:40 98.2 F 80 80 16 102/65 97 02/20/19 20:40 98.0 F 77 77 16 108/69 96 02/20/19 20:05 98.0 F 64 64 14 107/65 96 02/20/19 19:35 72 16 Intake and Output 02/20/19 02/21/19 02/21/19 23:59 07:59 15:59 Intake Total 480 / 720 240 / 720 Output Total 850 / 1450 600 / 1450 Balance -370 / -730 -360 / -730 Intake: Oral 480 / 720 240 / 720 Output: Urine 600 / 600 Catheter 850 / 850 Other: Meal Breakfast Percent of Meal Consumed 100% - Exam Lungs: bilateral: normal Chest: Normal S1, Normal S2 Extremities: Present: normal Abdomen: Present: normal appearance, soft Incision: Present: normal, intact (Patient has not had any bleeding since last incision check, the dressing is intact, with old dried blood ), dressed Uterus: Present: normal, firm Comments: Uterine fundus is at the umbilicus - Labs Labs: Laboratory Results - last 24 hr 02/20/19 02/21/19 10:25 06:10 WBC 6.7 7.1 RBC 4.15 3.63 L Hgb 12.1 10.8 L Hct 36.9 32.7 L MCV 88.9 90.1 MCH 29.2 29.8 MCHC 32.8 33.0 RDW 13.5 13.3 Plt Count 239 194 MPV 9.9 9.6 Immature Gran % 0.4 0.4 Seg Neutrophils % 70.4 75.2 Lymphocytes % 23.7 18.3 Monocytes % 4.5 5.0 Eosinophils % 0.7 1.0 Basophils % 0.3 0.1 Neutrophils # 4.7 5.3 Lymphocytes # 1.6 1.3 Monocytes # 0.3 0.4 Eosinophils # 0.1 0.1 Basophils # 0.0 0.0
[2019-02-22 08:16] VITALS: BP 112/70
[2019-02-22] MEDS: cephALEXin 500 MG CAPSULE PO SCH (09:11)
[2019-02-22] MEDS: Prenatal Vit/FA 1 EACH TABLET PO SCH (09:11)
[2019-02-22] MEDS: metroNIDAZOLE 500 MG TABLET PO SCH (09:11)
[2019-02-22] MEDS: Acetaminophen 325 MG TABLET PO SCH (09:12)
[2019-02-22] MEDS: Ibuprofen 600 MG TABLET PO SCH (09:12)
--- NOTE | 2019-02-22 11:03 | Discharge Summary ---
Date of Encounter: 02/22/19 Time of Encounter: 10:59 - Discharge Diagnosis (1) Status post repeat low transverse section Priority: Primary Status: Acute Comments: Pt meeting all post-op milestones. She is tolerating a regular diet, passing flatus, voiding freely. 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 Ambulating without difficulty. She desires discharge to guest today. Reprots good mood. (2) Breast feeding status of mother Priority: Secondary Status: Acute - Discharge Medications Prescriptions: New Ibuprofen [Motrin] 600 mg PO Q6HR #30 tablet OxyCODONE Immed Rel [Roxicodone 5 MG] 5 mg PO Q6HR PRN 7 Days #28 tablet PRN Reason: Severe Pain (7-10) Acetaminophen [Tylenol] 500 mg PO Q6HR PRN #30 tablet PRN Reason: POST C/S - Mild Pain Docusate [Colace] 100 mg PO BID #30 capsule Simethicone [Gas-X] 80 mg PO TID PRN tab.chew PRN Reason: Dyspepsia Continued Vit 108/Iron/Folic AC [ One Tablet] 1 each PO DAILY Bupropion HCl [Wellbutrin Xl] 300 mg PO DAILY FLUoxetine HCl [Prozac] 1 tab PO QAM Home Medications: Bupropion HCl [Wellbutrin Xl] 300 mg PO DAILY 11/07/16 [History] Vit 108/Iron/Folic AC [ One Tablet] 1 each PO DAILY 11/07/16 [History] FLUoxetine HCl [Prozac] 1 tab PO QAM 02/20/19 [History] Acetaminophen [Tylenol] 500 mg PO Q6HR PRN #30 tablet 02/22/19 [Rx] Docusate [Colace] 100 mg PO BID #30 capsule 02/22/19 [Rx] Ibuprofen [Motrin] 600 mg PO Q6HR #30 tablet 02/22/19 [Rx] OxyCODONE Immed Rel [Roxicodone 5 MG] 5 mg PO Q6HR PRN 7 Days #28 tablet 02/22/19 [Rx] Simethicone [Gas-X] 80 mg PO TID PRN tab.chew 02/22/19 [Rx] Allergies/Adverse Reactions: Allergy/AdvReac Type Severity Reaction Status Date / Time No Known Allergies Allergy Verified 11/16/16 06:05 Data Procedures and tests throughout hospitalization: Laboratory Tests 02/20/19 02/20/19 02/20/19 09:30 09:30 10:25 WBC 6.7 RBC 4.15 Hgb 12.1 Hct 36.9 MCV 88.9 MCH 29.2 MCHC 32.8 RDW 13.5 Plt Count 239 MPV 9.9 Immature Gran % 0.4 Seg Neutrophils % 70.4 Lymphocytes % 23.7 Monocytes % 4.5 Eosinophils % 0.7 Basophils % 0.3 Neutrophils # 4.7 Lymphocytes # 1.6 Monocytes # 0.3 Eosinophils # 0.1 Basophils # 0.0 Urine Color Yellow Urine Clarity Clear Urine pH 6.0 Ur Specific [place] 1.015 Urine Protein Negative Urine Glucose (UA) Normal Urine Ketones Negative Urine Blood Negative Urine Nitrite Negative Urine Bilirubin Negative Urine Urobilinogen Normal Ur Leukocyte Esterase Small H Urine Microscopic RBC 0-3 Urine Microscopic WBC 0-3 Ur Squamous Epith Cells Few Urine Bacteria Few Ur Culture Indicated? YES A Urine Opiates Screen Negative Ur Buprenorphine Scrn Negative Ur Barbiturates Screen Negative Ur Phencyclidine Scrn Negative Ur Amphetamines Screen Negative U Benzodiazepines Scrn Negative Urine Cocaine Screen Negative U Marijuana (THC) Screen Negative Ur Drug Screen Interp See Below 02/21/19 06:10 WBC 7.1 RBC 3.63 L Hgb 10.8 L Hct 32.7 L MCV 90.1 MCH 29.8 MCHC 33.0 RDW 13.3 Plt Count 194 MPV 9.6 Immature Gran % 0.4 Seg Neutrophils % 75.2 Lymphocytes % 18.3 Monocytes % 5.0 Eosinophils % 1.0 Basophils % 0.1 Neutrophils # 5.3 Lymphocytes # 1.3 Monocytes # 0.4 Eosinophils # 0.1 Basophils # 0.0 Urine Color Urine Clarity Urine pH Ur Specific [place] Urine Protein Urine Glucose (UA) Urine Ketones Urine Blood Urine Nitrite Urine Bilirubin Urine Urobilinogen Ur Leukocyte Esterase Urine Microscopic RBC Urine Microscopic WBC Ur Squamous Epith Cells Urine Bacteria Ur Culture Indicated? Urine Opiates Screen Ur Buprenorphine Scrn Ur Barbiturates Screen Ur Phencyclidine Scrn Ur Amphetamines Screen U Benzodiazepines Scrn Urine Cocaine Screen U Marijuana (THC) Screen Ur Drug Screen Interp Date of admission: 02/20/19 09:08 Primary care physician: Rebecca Frank CNP Discharging clinician: Nga Barton Anticipated date of discharge: 02/22/19 - Patient Status Disposition: Home, Self-Care Condition: Good Functional capacity at discharge: independent ambulation Overall status at discharge: patient is progressing back to baseline - Discharge Instructions Follow Up With: Rebecca Frank CNP [Primary Care Provider] - Madiha Rm MD [Partnered Physician] - - Diet and Activity Activity: increase activity as tolerated Diet: regular diet Hospital Course Reason for admission: active labor, section Delivery: section Episiotomy: none Laceration: none Other procedures: none complications: none Discharge diagnosis: delivery Amigo baby: male Hospital course: - Date of procedure: 02/20/19 Preop diagnosis: desires repeat , other (3 previous sections, active labor at 36 weeks) Post-op diagnosis: same Procedure: section, repeat low transverse Surgeon: Madiha Rm Quantitated Blood Loss: 400 Was there an painter assistant present: No Elevator Mechanic: Doni Alvarez Anesthesia Type: Spinal section complications: none Disposition: L&D Recovery Room Specimens: Placenta, Cord segment - (s) A Infant Delivery Date: 02/20/19 Infant Delivery Time: 15:51 Presentation: vertex Route of delivery: other ( section) Gender: Male Viability: Viable Pounds: 6 Ounces: 15 Gram Weight: 3.14 kg at 1 minute: 8 at 5 minutes: 9 Placenta: spontaneous, uterine exploration Cord: nuchal cord, 3 umbilical vessels, nuchal reduced Time Attestation: Total time spent providing and/or coordinating discharge services: Time Spent: Less than 30 minutes - VTE Reasons for not Prescribing Prophylaxis: Treatment not Indicated - Low risk for VTE Documentation of Mechanical Device: Intermittent pneumatic compression device Exam - Constitutional Vitals: Temp Pulse Resp BP Pulse Ox 97.8 F 77 16 112/70 98 02/22/19 08:14 02/22/19 08:14 02/22/19 10:34 02/22/19 08:14 02/21/19 20:40 General appearance IM: A&O X 3 - Respiratory Respiratory exam: Present: CTAB - Cardiovascular Cardiovascular exam IM: Present: RRR, +S1, +S2 - GI/Abdominal GI/Abdominal exam IM: soft, no peritoneal signs - Uterine Tone: Firm Uterus Position: 1 Finger Below Umbilicus - Extremities Exam Extremities exam IM: Present: pedal edema (mild bilaterally) - Neurological Exam Neurological exam: normal gait, oriented X3 - Psychiatric Additional comments: reports good mood
== END 2019-02-22 11:45 | disposition home or self-care (01) | DRG 786 ==
LOC: 1NENULAB → OBSVTOIN 09:08 → 1NENUOBS 21:08
PROVIDERS: ADMIT Advanced Practice Midwife; ATTEND Advanced Practice Midwife